=== PATIENT | female | born 1970 | race Two or more races ===

== ENCOUNTER 2018-01-30 07:09 | Outpatient (CLI) | payer OTHER ==
[~2018-01-30 07:09] MED LIST: BIOFLEX TABLET1 EACH PO; CALCI-CHEW500 MG PO; CODE1TAB37 PO; DAFLONEX-XL TA1 EACH PO; HYZAAR 50-12.51 EACH PO; LYRICA20 MG/1 ML; MACROBID 100 M100 MG PO; OMEGA 3 1,0001 EACH PO; PERCOCET 5-3251 EACH PO; PROSAC PO; PYRIDIUM200 MG PO; SYNTHROID137 MCG PO; SYNTHROID50 MCG PO; TYLENOL-CODEINE1 TAB PO
== END 2018-01-30 07:14 | disposition home or self-care (01) ==
LOC: LAB 07:09
DX: R10.2 Pelvic and perineal pain (principal); N81.12 Cystocele, lateral; N30.01 Acute cystitis with hematuria; D64.89 Other specified anemias; I10 Essential (primary) hypertension

== ENCOUNTER → 2018-06-26 | Emergency (ER) | payer OTHER ==
[~2018-06-26] VITALS: Ht 162.6 cm; Wt 68.0 kg
[~2018-06-26] MED LIST changes: +LYRICA50 MG; +SYNTHROID50 MCG; +TRAMADOL HCL50 MG PO; +VITAMIN D1000 UNIT
== END | disposition home or self-care (01) ==
LOC: ER 17:03
DX: R10.31 Right lower quadrant pain (principal); R00.2 Palpitations

== ENCOUNTER 2018-07-22 08:48 | Outpatient (CLI) | payer OTHER | END 2018-07-22 09:45 | disposition home or self-care (01) | LOC: LAB 08:48 | DX: N39.0 Urinary tract infection, site not specified (principal); R10.9 Unspecified abdominal pain ==

== ENCOUNTER 2018-07-22 09:37 | Outpatient (CLI) | payer OTHER | END 2018-07-22 09:41 | disposition home or self-care (01) | LOC: RAD 09:37 | DX: R10.9 Unspecified abdominal pain (principal) ==

== ENCOUNTER 2019-01-25 04:20 | Day surgery (SDC) | payer OTHER ==
[~2019-01-25 04:20] MED LIST changes: +LEVAQUIN500 MG PO; +LEVSIN/SL0.125 MG PO; +LYRICA50 MG PO; +NORVASC2.5 M1 PO; +OSTERA TABLET1 EACH PO; +ULTRACET PO
== END 2019-01-25 12:10 | disposition home or self-care (01) ==
LOC: CIR.AMB 04:20
DX: T83.89XA Other specified complication of genitourinary prosthetic devices, implants and grafts, initial encounter (principal)

== ENCOUNTER 2020-09-11 05:40 | Day surgery (SDC) | payer OTHER ==
[~2020-09-11 05:40] MED LIST changes: +SINGULAIR10 MG PO; +SYMBICORT 16010.2 GM IH
== END 2020-09-11 15:55 | disposition home or self-care (01) ==
LOC: CIR.AMB 05:40
PROVIDERS: ATTEND Urology
DX: T83.89XA Other specified complication of genitourinary prosthetic devices, implants and grafts, initial encounter (principal); Z20.822 Contact with and (suspected) exposure to COVID-19

== ENCOUNTER 2020-11-23 06:55 | Emergency (ER) | payer OTHER ==
[~2020-11-23] VITALS: Ht 160 cm; Wt 68.0 kg
[2020-11-23] MEDS ORDERED: KETO10TA2 PO (12:23)
[2020-11-23] MEDS ORDERED: NORFLEX100MG PO (12:23)
== END 2020-11-23 12:41 | disposition home or self-care (01) ==
LOC: ER 06:55
DX: N39.0 Urinary tract infection, site not specified (principal); R10.9 Unspecified abdominal pain; R30.0 Dysuria; K76.0 Fatty (change of) liver, not elsewhere classified

== ENCOUNTER 2021-01-22 04:47 | Day surgery (SDC) | payer OTHER ==
[~2021-01-22 04:47] MED LIST changes: +KETO10TA2 PO; +NORFLEX100MG PO
== END 2021-01-22 15:23 | disposition home or self-care (01) ==
LOC: CIR.AMB 04:47
PROVIDERS: ATTEND Specialist
DX: K40.90 Unilateral inguinal hernia, without obstruction or gangrene, not specified as recurrent (principal); Z20.822 Contact with and (suspected) exposure to COVID-19

== ENCOUNTER 2024-07-07 07:41 | Outpatient (CLI) | payer OTHER | END 2024-07-07 07:42 | disposition home or self-care (01) | LOC: SONOGRAMA 07:41 | PROVIDERS: ATTEND Pathology Anatomic Pathology & Clinical Pathology | DX: D34 Benign neoplasm of thyroid gland (principal); R59.0 Localized enlarged lymph nodes; E04.1 Nontoxic single thyroid nodule ==